=== PATIENT | female | born 1955 | race African-American/Black ===

== ENCOUNTER 2016-12-05 10:14 | Emergency (ER) | payer MEDICAID ==
[~2016-12-05] VITALS: Ht 177.8 cm; Wt 70.0 kg
[~2016-12-05 10:14] MED LIST: THYROID MEDICATION
[2016-12-05] MEDS ORDERED: KETOROLAC 30MG/ML VIAL IV ONE (11:15)
[2016-12-05] MEDS ORDERED: ONDANSETRON HCL 4MG/2ML VIAL IV PRN (11:15)
[2016-12-05] MEDS: MORPHINE SULFATE 2 MG/ML CPJ (NOT FOR IM USE) IV ONE ×2 (11:44→13:35)
[2016-12-05] MEDS ORDERED: HYDROCODONE/ACETAMINOPHEN 5/325MG TABLET PO ONE (17:15)
[2016-12-05 17:44] VITALS: BP 132/72
== END 2016-12-05 18:02 | disposition home or self-care (01) ==
LOC: ER 10:56
DX: R51 Headache (principal); R56.9 Unspecified convulsions; E05.90 Thyrotoxicosis, unspecified without thyrotoxic crisis or storm; Z79.899 Other long term (current) drug therapy; Z88.2 Allergy status to sulfonamides
CPT/HCPCS: 96374; 96375; 99284; J1885; J2270; J2405; Z7610

== ENCOUNTER 2017-02-03 10:00 | Emergency (ER) | payer MEDICAID ==
[~2017-02-03] VITALS: Ht 177.8 cm; Wt 61.0 kg
[2017-02-03] MEDS ORDERED: KETOROLAC 60MG/2ML VIAL IM ONE (11:15)
[2017-02-03] MEDS ORDERED: DEXAMETHASONE 10MG/ML 1ML VIAL IM ONE (11:15)
[2017-02-03 15:35] VITALS: BP 120/19
== END 2017-02-03 16:02 | disposition home or self-care (01) ==
LOC: ER 10:52
DX: R51 Headache (principal); G40.909 Epilepsy, unspecified, not intractable, without status epilepticus; F12.10 Cannabis abuse, uncomplicated; Z85.9 Personal history of malignant neoplasm, unspecified; Z88.2 Allergy status to sulfonamides; Z86.011 Personal history of benign neoplasm of the brain; Z86.73 Personal history of transient ischemic attack (TIA), and cerebral infarction without residual deficits; Z98.890 Other specified postprocedural states
CPT/HCPCS: 36415; 85651; 96372; 99284; J1100; J1885; Z7610

== ENCOUNTER 2017-03-06 10:10 | Emergency (ER) | payer MEDICAID ==
[~2017-03-06] VITALS: Ht 177.8 cm; Wt 65.0 kg
[2017-03-06] MEDS ORDERED: SODIUM CHLORIDE 0.9% 1,000 ML IV ONE (10:43)
[2017-03-06] MEDS ORDERED: DEXAMETHASONE 10MG/ML 1ML VIAL IV ONE (10:45)
[2017-03-06] MEDS ORDERED: KETOROLAC 15MG/ML VIAL IV ONE (10:45)
[2017-03-06 11:04] LABS: BASOPHILS % 0.8 % (0.0-2.0); EOSINOPHILS % 0.4 % (0.0-5.0); HEMATOCRIT. 39.7 % (36.0-48.0); HEMOGLOBIN. 13.1 g/dL (12.0-16.0); LYMPHOCYTES % 39.5 % (20.0-50.0); MEAN CORPUSCULAR HEMOGLOBIN 28.7 pg (28.0-32.0); MEAN CORPUSCULAR VOLUME 86.7 fL (81.0-99.0); MONOCYTES % 6.5 % (2.0-8.0); NEUTROPHILS % 52.8 % (40.0-76.0); PLATELET 241 x1000/uL (130-400); RED BLOOD CELL COUNT 4.57 mill/uL (4.2-5.4); RED CELL DISTRIBUTION WIDTH 14.5 % (11.6-14.6)
[2017-03-06 11:10] LABS: CHLORIDE 110 mEq/L (98-107)
[2017-03-06 11:19] LABS: CARBON DIOXIDE 23 mEq/L (21-32)
[2017-03-06] MEDS ORDERED: POTASSIUM CHLORIDE 20MEQ TABLET SR PO NR (12:15)
[2017-03-06 14:28] VITALS: BP 111/62
== END 2017-03-06 15:00 | disposition home or self-care (01) ==
LOC: ER 10:46
DX: R51 Headache (principal); E87.6 Hypokalemia; R53.1 Weakness; R47.01 Aphasia; E05.90 Thyrotoxicosis, unspecified without thyrotoxic crisis or storm; F12.10 Cannabis abuse, uncomplicated; Z88.2 Allergy status to sulfonamides; Z86.73 Personal history of transient ischemic attack (TIA), and cerebral infarction without residual deficits; Z85.3 Personal history of malignant neoplasm of breast; Z90.11 Acquired absence of right breast and nipple; Z98.890 Other specified postprocedural states
CPT/HCPCS: 36415; 80053; 85025; 96361; 96374; 96375; 99285; J1100; J1885; J7030; Z7610

== ENCOUNTER 2017-05-23 19:14 | Emergency (ER) | payer MEDICAID ==
[~2017-05-23] VITALS: Ht 177.8 cm; Wt 66.0 kg
[2017-05-23 20:20] VITALS: BP 132/81
== END 2017-05-24 02:00 | disposition left against medical advice (07) ==
LOC: ER 05-24 01:29
DX: R53.1 Weakness (principal); Z53.21 Procedure and treatment not carried out due to patient leaving prior to being seen by health care provider

== ENCOUNTER 2018-07-18 19:50 | Inpatient (IN) | payer MEDICAID ==
[~2018-07-18] VITALS: Ht 170.2 cm; Wt 54.0 kg
[2018-07-18] MEDS ORDERED: IBUPROFEN 400MG TABLET PO ONE (20:45)
[2018-07-18] MEDS ORDERED: SODIUM CHLORIDE 0.9% 1,000 ML IV ONE (20:45)
[2018-07-18 22:06] LABS: BASOPHILS % 0.2 % (0.0-2.0); EOSINOPHILS % 0.1 % (0.0-5.0); HEMATOCRIT. 42.7 % (36.0-48.0); HEMOGLOBIN. 13.9 g/dL (12.0-16.0); LYMPHOCYTES % 24.7 % (20.0-50.0); MEAN CORPUSCULAR HEMOGLOBIN 29.3 pg (28.0-32.0); MEAN CORPUSCULAR VOLUME 90.2 fL (81.0-99.0); MEAN PLATELET VOLUME 8.3 fl (7.4-10.4); MONOCYTES % 6.1 % (2.0-8.0); NEUTROPHILS % 68.9 % (40.0-76.0); PLATELET 333 x1000/uL (130-400); RED BLOOD CELL COUNT 4.74 mill/uL (4.2-5.4); RED CELL DISTRIBUTION WIDTH 14.6 % (11.6-14.6)
[2018-07-18] MEDS ORDERED: CEFTRIAXONE 1 G PREMIX 50 ML IV ONE (22:45)
[2018-07-18 23:08] LABS: CLARITY URINE CLEAR (CLEAR); COLOR URINE YELLOW (YELLOW); KETONES URINE NEGATIVE (NEGATIVE); LEUKOCYTE ESTERASE URINE NEGATIVE (NEGATIVE); NITRITE URINE NEGATIVE (NEGATIVE); OCCULT BLOOD URINE NEGATIVE (NEGATIVE); PH URINE 5.5 (4.5-8.0); PROTEIN URINE NEGATIVE (NEGATIVE); SPECIFIC GRAVITY URINE 1.007 (1.005-1.030); UROBILINOGEN URINE 0.2 E.U./dL (0.2-1.0)
[2018-07-19 00:06] LABS: CHLORIDE 110 mEq/L (98-107)
[2018-07-19] MEDS ORDERED: SODIUM CHLORIDE 0.9% 1,000 ML IV SCH (02:53)
[2018-07-19 04:15] VITALS: BP 91/54
[2018-07-19 04:30] VITALS: BP 91/54
[2018-07-19] MEDS ORDERED: MAGNESIUM/ALUMINUM HYDROXIDE/SIMETHICONE 30ML UDC PO PRN (06:15)
[2018-07-19] MEDS ORDERED: IPRATROPIUM/ALBUTEROL 0.5-3(2.5)MG/3ML NEB INH PRN (06:15)
[2018-07-19] MEDS ORDERED: DOCUSATE SODIUM 100MG CAPSULE PO PRN (06:15)
[2018-07-19] MEDS ORDERED: GUAIFENESIN 200MG/10ML SUGAR FREE UDC PO PRN (06:15)
[2018-07-19] MEDS ORDERED: CLONIDINE 0.1MG TABLET PO PRN (06:15)
[2018-07-19] MEDS ORDERED: CEFTRIAXONE 1 G PREMIX 50 ML IV SCH (06:15)
[2018-07-19] MEDS ORDERED: ACETAMINOPHEN 325MG TABLET PO PRN (06:15)
[2018-07-19] MEDS: SODIUM CHLORIDE 0.9% 1,000 ML IV SCH (07:07)
[2018-07-19 08:00] VITALS: BP 90/53
[2018-07-19] MEDS: ASPIRIN 81MG EC TABLET PO SCH (08:52)
[2018-07-19] MEDS ORDERED: CLOP75TA16 PO (11:56)
[2018-07-19] MEDS ORDERED: IBUP-2030 PO (11:56)
[2018-07-19] MEDS ORDERED: KEPP500 PO (11:56)
[2018-07-19] MEDS ORDERED: LEVO100T9 PO (11:56)
[2018-07-19 12:00] VITALS: BP 110/67
[2018-07-19] MEDS: HYDROCODONE/ACETAMINOPHEN 5/325MG TABLET PO PRN (12:09)
[2018-07-19] MEDS: LEVOTHYROXINE SODIUM 100MCG TABLET PO SCH ×2 (12:31→13:34)
[2018-07-19] MEDS: LEVETIRACETAM 250MG TABLET PO SCH ×2 (12:31→13:34)
[2018-07-19] MEDS: CLOPIDOGREL 75MG TABLET PO SCH ×2 (12:32→13:34)
[2018-07-19] MEDS: ONDANSETRON HCL 4MG/2ML INJ IV PRN (13:33)
[2018-07-19 16:00] VITALS: BP 120/54
[2018-07-19 20:00] VITALS: BP 115/72
[2018-07-19] MEDS: LEVETIRACETAM 500MG TABLET PO SCH (20:40)
[2018-07-19 21:38] LABS: FOLIC ACID (FOLATE) SERUM >20 ng/mL ng/mL (>5.38); VITAMIN B12 SERUM >2000 pg/mL pg/mL (211-911)
[2018-07-19] MEDS: CEFTRIAXONE 1 G PREMIX 50 ML IV SCH (23:51)
[2018-07-19 23:58] LABS: *AMPHETAMINES SCREEN URINE NEGATIVE (NEGATIVE); *BARBITURATES SCREEN URINE NEGATIVE (NEGATIVE); *COCAINE SCREEN URINE NEGATIVE (NEGATIVE)
[2018-07-20] VITALS: BP 126/73
[2018-07-20 00:01] LABS: *BENZODIAZEPINES SCREEN URINE NEGATIVE (NEGATIVE); CANNABINOID URINE SCREEN PRESUMTIVE POSITIVE (NEGATIVE); METHADONE URINE SCREEN NEGATIVE (NEGATIVE); OPIATES URINE SCREEN NEGATIVE (NEGATIVE); PHENCYCLIDINE URINE SCREEN NEGATIVE (NEGATIVE)
[2018-07-20 04:00] VITALS: BP 118/69
[2018-07-20] MEDS: SODIUM CHLORIDE 0.9% 1,000 ML IV SCH (06:41)
[2018-07-20] MEDS: KETOROLAC 15MG/ML VIAL IV PRN (06:44)
[2018-07-20] MEDS ORDERED: LEVOTHYROXINE SODIUM 100MCG TABLET PO SCH (06:45)
[2018-07-20 08:00] VITALS: BP 122/63
[2018-07-20 08:00] LABS: BASOPHILS % 0.4 % (0.0-2.0); EOSINOPHILS % 0.5 % (0.0-5.0); HEMOGLOBIN. 12.9 g/dL (12.0-16.0); LYMPHOCYTES % 32.6 % (20.0-50.0); MEAN CORPUSCULAR HEMOGLOBIN 29.7 pg (28.0-32.0); MEAN CORPUSCULAR VOLUME 89.6 fL (81.0-99.0); MEAN PLATELET VOLUME 7.8 fl (7.4-10.4); MONOCYTES % 5.6 % (2.0-8.0); NEUTROPHILS % 60.9 % (40.0-76.0); PLATELET 258 x1000/uL (130-400); RED BLOOD CELL COUNT 4.35 mill/uL (4.2-5.4)
[2018-07-20 08:26] LABS: CHLORIDE 102 mEq/L (98-107)
[2018-07-20] MEDS ORDERED: FOLI20CA PO (08:33)
[2018-07-20] MEDS ORDERED: PYRI50TA9 PO (08:34)
[2018-07-20] MEDS ORDERED: CYAN50008 PO (08:34)
[2018-07-20 08:41] LABS: HDL CHOLESTEROL 60 mg/dL (40-59); LDL CHOLESTEROL 82 mg/dL (5-100); T4 FREE 1.44 ng/dL (0.76-1.46)
[2018-07-20] MEDS: CLOPIDOGREL 75MG TABLET PO SCH (08:53)
[2018-07-20] MEDS: LEVETIRACETAM 500MG TABLET PO SCH ×2 (08:53→21:17)
[2018-07-20] MEDS: ASPIRIN 81MG EC TABLET PO SCH (08:53)
[2018-07-20] MEDS ORDERED: CLOPIDOGREL 75MG TABLET PO SCH (09:00)
[2018-07-20 12:00] VITALS: BP 126/76
[2018-07-20] MEDS: IBUPROFEN 800MG TABLET PO PRN (13:30)
[2018-07-20 16:00] VITALS: BP 126/76
[2018-07-20 20:00] VITALS: BP 110/64
[2018-07-20] MEDS: CEFTRIAXONE 1 G PREMIX 50 ML IV SCH (21:17)
[2018-07-21] VITALS (7 sets, daily range): BP systolic 100–124; BP diastolic 54–72
[2018-07-21] MEDS: LEVOTHYROXINE SODIUM 75MCG TABLET PO SCH (05:28)
[2018-07-21 07:04] LABS: BASOPHILS % 0.4 % (0.0-2.0); EOSINOPHILS % 1.3 % (0.0-5.0); HEMATOCRIT. 39.6 % (36.0-48.0); HEMOGLOBIN. 13.1 g/dL (12.0-16.0); LYMPHOCYTES % 39.8 % (20.0-50.0); MEAN CORPUSCULAR HEMOGLOBIN 29.2 pg (28.0-32.0); MEAN CORPUSCULAR VOLUME 88.4 fL (81.0-99.0); MONOCYTES % 5.8 % (2.0-8.0); NEUTROPHILS % 52.7 % (40.0-76.0); PLATELET 261 x1000/uL (130-400); RED BLOOD CELL COUNT 4.47 mill/uL (4.2-5.4); RED CELL DISTRIBUTION WIDTH 13.7 % (11.6-14.6)
[2018-07-21 07:48] LABS: CHLORIDE 93 mEq/L (98-107)
[2018-07-21] MEDS: CLOPIDOGREL 75MG TABLET PO SCH (09:25)
[2018-07-21] MEDS: ASPIRIN 81MG EC TABLET PO SCH (09:25)
[2018-07-21] MEDS: LEVETIRACETAM 500MG TABLET PO SCH ×2 (09:25→20:26)
[2018-07-21] MEDS ORDERED: GADOBENATE DIMEGLUMINE 529 MG/ML 10ML IV ONE (09:57)
[2018-07-21] MEDS: HYDROCODONE/ACETAMINOPHEN 5/325MG TABLET PO PRN (10:40)
[2018-07-21] MEDS: SODIUM CHLORIDE 0.9% 1,000 ML IV SCH (11:29)
[2018-07-21] MEDS: CEFTRIAXONE 1 G PREMIX 50 ML IV SCH (23:39)
[2018-07-22] VITALS: BP 106/69
[2018-07-22 04:00] VITALS: BP 104/68
[2018-07-22] MEDS: LEVOTHYROXINE SODIUM 75MCG TABLET PO SCH (05:48)
[2018-07-22] MEDS: SODIUM CHLORIDE 0.9% 1,000 ML IV SCH (05:50)
[2018-07-22 08:00] VITALS: BP_SYST 111; BP_SYST 119; BP_SYST 122; BP_DIAS 78; BP_DIAS 79; BP_DIAS 83
[2018-07-22] MEDS: IBUPROFEN 800MG TABLET PO PRN (09:33)
[2018-07-22] MEDS: CLOPIDOGREL 75MG TABLET PO SCH (09:33)
[2018-07-22] MEDS: ASPIRIN 81MG EC TABLET PO SCH (09:33)
[2018-07-22] MEDS: LEVETIRACETAM 500MG TABLET PO SCH ×2 (09:33→21:44)
[2018-07-22 09:50] LABS: BASOPHILS % 0.3 % (0.0-2.0); EOSINOPHILS % 1.1 % (0.0-5.0); HEMATOCRIT. 42.7 % (36.0-48.0); HEMOGLOBIN. 14.4 g/dL (12.0-16.0); LYMPHOCYTES % 38.2 % (20.0-50.0); MEAN CORPUSCULAR HEMOGLOBIN 29.8 pg (28.0-32.0); MEAN CORPUSCULAR VOLUME 88.4 fL (81.0-99.0); MEAN PLATELET VOLUME 7.8 fl (7.4-10.4); MONOCYTES % 5.6 % (2.0-8.0); NEUTROPHILS % 54.8 % (40.0-76.0); PLATELET 244 x1000/uL (130-400); RED BLOOD CELL COUNT 4.83 mill/uL (4.2-5.4); RED CELL DISTRIBUTION WIDTH 13.9 % (11.6-14.6)
[2018-07-22 10:03] LABS: CHLORIDE 95 mEq/L (98-107)
[2018-07-22 10:06] LABS: PHOSPHORUS 2.2 mg/dL (2.5-4.9)
[2018-07-22 12:00] VITALS: BP 132/82
[2018-07-22] MEDS ORDERED: SODIUM PHOS,M-BASIC-D-BASIC 20 MM in DEXT 5% WATER 243.3333 ML IV SCH (13:00)
[2018-07-22 16:00] VITALS: BP 113/75
[2018-07-22 20:00] VITALS: BP_SYST 102; BP_SYST 112; BP_SYST 114; BP_DIAS 61; BP_DIAS 75
[2018-07-23] VITALS: BP 127/71
[2018-07-23] MEDS: CEFTRIAXONE 1 G PREMIX 50 ML IV SCH ×2 (01:22→22:15)
[2018-07-23 04:00] VITALS: BP 117/71
[2018-07-23] MEDS: LEVOTHYROXINE SODIUM 75MCG TABLET PO SCH (05:18)
[2018-07-23] MEDS: HYDROCODONE/ACETAMINOPHEN 5/325MG TABLET PO PRN (05:20)
[2018-07-23 06:07] LABS: BASOPHILS % 0.5 % (0.0-2.0); EOSINOPHILS % 1.2 % (0.0-5.0); HEMATOCRIT. 39.8 % (36.0-48.0); HEMOGLOBIN. 13.6 g/dL (12.0-16.0); LYMPHOCYTES % 33.8 % (20.0-50.0); MEAN CORPUSCULAR HEMOGLOBIN 29.9 pg (28.0-32.0); MEAN CORPUSCULAR VOLUME 87.7 fL (81.0-99.0); MEAN PLATELET VOLUME 7.9 fl (7.4-10.4); MONOCYTES % 7.5 % (2.0-8.0); PLATELET 240 x1000/uL (130-400); RED BLOOD CELL COUNT 4.55 mill/uL (4.2-5.4); RED CELL DISTRIBUTION WIDTH 13.5 % (11.6-14.6)
[2018-07-23 08:00] VITALS: BP 108/75
[2018-07-23 08:14] LABS: CHLORIDE 96 mEq/L (98-107)
[2018-07-23 08:20] LABS: PHOSPHORUS 2.6 mg/dL (2.5-4.9)
[2018-07-23] MEDS: ASPIRIN 81MG EC TABLET PO SCH (09:32)
[2018-07-23] MEDS: CLOPIDOGREL 75MG TABLET PO SCH (09:32)
[2018-07-23] MEDS: LEVETIRACETAM 500MG TABLET PO SCH ×2 (09:32→20:21)
[2018-07-23] MEDS: ONDANSETRON HCL 4MG/2ML INJ IV PRN (11:15)
[2018-07-23] MEDS: KETOROLAC 15MG/ML VIAL IV PRN (11:16)
[2018-07-23 12:00] VITALS: BP 111/60
[2018-07-23 16:00] VITALS: BP_SYST 107; BP_SYST 97; BP_DIAS 66; BP_DIAS 72; BP_DIAS 76
[2018-07-23 20:00] VITALS: BP_SYST 110; BP_SYST 114; BP_SYST 99; BP_DIAS 56; BP_DIAS 65; BP_DIAS 82
[2018-07-23] MEDS: IBUPROFEN 800MG TABLET PO PRN (20:37)
[2018-07-24] VITALS: BP 115/69
[2018-07-24 04:00] VITALS: BP 115/75
[2018-07-24] MEDS: LEVOTHYROXINE SODIUM 75MCG TABLET PO SCH (06:11)
[2018-07-24 08:10] VITALS: BP_SYST 106; BP_SYST 98; BP_DIAS 59; BP_DIAS 74
[2018-07-24 08:38] LABS: BASOPHILS % 0.7 % (0.0-2.0); EOSINOPHILS % 1.3 % (0.0-5.0); HEMOGLOBIN. 13.5 g/dL (12.0-16.0); LYMPHOCYTES % 38.2 % (20.0-50.0); MEAN CORPUSCULAR HEMOGLOBIN 29.1 pg (28.0-32.0); MEAN CORPUSCULAR VOLUME 88.3 fL (81.0-99.0); MONOCYTES % 9.6 % (2.0-8.0); NEUTROPHILS % 50.2 % (40.0-76.0); PLATELET 244 x1000/uL (130-400); RED BLOOD CELL COUNT 4.65 mill/uL (4.2-5.4); RED CELL DISTRIBUTION WIDTH 13.9 % (11.6-14.6)
[2018-07-24] MEDS: LEVETIRACETAM 500MG TABLET PO SCH ×2 (09:01→20:53)
[2018-07-24] MEDS: CLOPIDOGREL 75MG TABLET PO SCH (09:01)
[2018-07-24] MEDS: ASPIRIN 81MG EC TABLET PO SCH (09:01)
[2018-07-24 09:13] LABS: PHOSPHORUS 3.2 mg/dL (2.5-4.9)
[2018-07-24 09:15] LABS: CHLORIDE 96 mEq/L (98-107)
[2018-07-24 12:00] VITALS: BP 113/68
[2018-07-24] MEDS: IBUPROFEN 800MG TABLET PO PRN (14:25)
[2018-07-24 16:00] VITALS: BP 97/70
[2018-07-24 20:00] VITALS: BP_SYST 104; BP_SYST 105; BP_SYST 118; BP_DIAS 67; BP_DIAS 69; BP_DIAS 79
[2018-07-24] MEDS: CEFTRIAXONE 1 G PREMIX 50 ML IV SCH (22:57)
[2018-07-25] VITALS: BP 106/62
[2018-07-25 04:00] VITALS: BP 103/73
[2018-07-25 06:45] LABS: BASOPHILS % 0.7 % (0.0-2.0); EOSINOPHILS % 1.3 % (0.0-5.0); HEMATOCRIT. 41.5 % (36.0-48.0); HEMOGLOBIN. 13.9 g/dL (12.0-16.0); LYMPHOCYTES % 43.6 % (20.0-50.0); MEAN CORPUSCULAR HEMOGLOBIN 29.4 pg (28.0-32.0); MEAN CORPUSCULAR VOLUME 87.8 fL (81.0-99.0); MEAN PLATELET VOLUME 8.1 fl (7.4-10.4); MONOCYTES % 9.7 % (2.0-8.0); NEUTROPHILS % 44.7 % (40.0-76.0); PLATELET 262 x1000/uL (130-400); RED BLOOD CELL COUNT 4.73 mill/uL (4.2-5.4); RED CELL DISTRIBUTION WIDTH 13.9 % (11.6-14.6)
[2018-07-25 06:55] LABS: CHLORIDE 94 mEq/L (98-107)
[2018-07-25 07:04] LABS: PHOSPHORUS 3.1 mg/dL (2.5-4.9)
[2018-07-25] MEDS ORDERED: COSYNTROPIN 0.25MG/ML VIAL IV SCH (08:00)
[2018-07-25 08:22] VITALS: BP 112/80
[2018-07-25] MEDS: CLOPIDOGREL 75MG TABLET PO SCH (09:17)
[2018-07-25] MEDS: ASPIRIN 81MG EC TABLET PO SCH (09:17)
[2018-07-25] MEDS: LEVETIRACETAM 500MG TABLET PO SCH (09:17)
[2018-07-25 12:00] VITALS: BP_SYST 101; BP_SYST 103; BP_SYST 105; BP_DIAS 55; BP_DIAS 63; BP_DIAS 74
[2018-07-25 16:00] VITALS: BP 100/71
[2018-07-25] MEDS ORDERED: ASPI-1158 PO (17:00)
[2018-07-25] MEDS ORDERED: PRED5TAB PO ×2 (17:00)
[2018-07-25] MEDS ORDERED: PREDNISONE 5MG TABLET PO SCH (17:00)
[2018-07-25] MEDS ORDERED: LEVO50TA8 PO (17:00)
[2018-07-25 18:50] VITALS: BP 100/71
[2018-07-26] MEDS ORDERED: LEVOTHYROXINE SODIUM 50MCG TABLET PO SCH (06:45)
[2018-07-26] MEDS ORDERED: PREDNISONE 5MG TABLET PO SCH (08:00)
[2018-07-26 08:16] LABS: ESTRADIOL < 6.0 pg/mL (.); FOLICLE STIMULATING HORMONE 1.7 mIU/mL (.); LUTEINIZING HORMONE <0.2 mIU/mL (.); PROLACTIN 52.4 ng/mL (4.8-23.3)
== END 2018-07-25 21:43 | disposition home or self-care (01) | DRG 720 ==
LOC: ER 19:50 → EDBEDREQ 07-19 02:56 → 5WST 07-19 02:56 → EDBEDREQTM 07-19 02:56 → EDBEDREQDT 07-19 02:56 → ENRESERV 07-19 03:06
PROVIDERS: ADMIT Internal Medicine; ATTEND Internal Medicine
PROC: 4A10X4Z Monitoring of Central Nervous Electrical Activity, External Approach (ICD-10-PCS; principal; 2018-07-22)
DX: A41.9 Sepsis, unspecified organism (principal); G93.40 Encephalopathy, unspecified; E46 Unspecified protein-calorie malnutrition; F32.9 Major depressive disorder, single episode, unspecified; G40.909 Epilepsy, unspecified, not intractable, without status epilepticus; G43.909 Migraine, unspecified, not intractable, without status migrainosus; I10 Essential (primary) hypertension; E27.40 Unspecified adrenocortical insufficiency; E87.1 Hypo-osmolality and hyponatremia; D49.7 Neoplasm of unspecified behavior of endocrine glands and other parts of nervous system; I95.1 Orthostatic hypotension; E03.9 Hypothyroidism, unspecified; E05.90 Thyrotoxicosis, unspecified without thyrotoxic crisis or storm; R00.1 Bradycardia, unspecified; Z68.1 Body mass index [BMI] 19.9 or less, adult; F19.10 Other psychoactive substance abuse, uncomplicated; F12.10 Cannabis abuse, uncomplicated; R47.1 Dysarthria and anarthria; G90.8 Other disorders of autonomic nervous system; W18.39XA Other fall on same level, initial encounter; Y93.89 Activity, other specified; Y92.89 Other specified places as the place of occurrence of the external cause; Y99.8 Other external cause status; I69.351 Hemiplegia and hemiparesis following cerebral infarction affecting right dominant side; Z82.49 Family history of ischemic heart disease and other diseases of the circulatory system; Z88.2 Allergy status to sulfonamides; Z90.10 Acquired absence of unspecified breast and nipple; I69.320 Aphasia following cerebral infarction
CPT/HCPCS: 36415; 70544; 70553; 71045; 80048; 80061; 80305; 82024; 82088; 82533; 82607; 82670; 82746; 83001; 83002; 83036; 83520; 83605; 83735; 83935; 84100; 84146; 84244; 84300; 84439; 84443; 84481; 84484; 86376; 86850; 86900; 92523; 92610; 93005; 93306; 93880; 93970; 96361; 96365; 97116; 97163; 97166; 97530; 97535; 99285; A9577; C1893; J0696; J0834; J1885; J2405; J3490; J7030; J7060; J7512

== ENCOUNTER 2019-05-09 14:51 | Emergency (ER) | payer MEDICAID ==
[~2019-05-09] VITALS: Ht 180.3 cm; Wt 64.0 kg
[~2019-05-09 14:51] MED LIST changes: +ASPI-1158 PO; +CLOP75TA4 PO; +CYAN50008 PO; +FOLI20CA PO; +KEPP500 PO; +LEVO50TA8 PO; +PRED5TAB PO; +PYRI-7 PO; -THYROID MEDICATION
[2019-05-09] MEDS ORDERED: MORPHINE SULFATE 4 MG/ML CPJ (NOT FOR IM USE) IV STA (15:45)
[2019-05-09] MEDS ORDERED: ONDANSETRON HCL 4MG/2ML INJ IV STA (15:45)
[2019-05-09] MEDS ORDERED: SODIUM CHLORIDE 0.9% 1,000 ML IV ONE (15:45)
[2019-05-09 16:37] LABS: CLARITY URINE CLEAR (CLEAR); COLOR URINE YELLOW (YELLOW); KETONES URINE NEGATIVE (NEGATIVE); LEUKOCYTE ESTERASE URINE NEGATIVE (NEGATIVE); NITRITE URINE NEGATIVE (NEGATIVE); OCCULT BLOOD URINE NEGATIVE (NEGATIVE); PROTEIN URINE NEGATIVE (NEGATIVE); SPECIFIC GRAVITY URINE 1.007 (1.005-1.030); UROBILINOGEN URINE 0.2 E.U./dL (0.2-1.0)
[2019-05-09 16:42] LABS: BASOPHILS % 0.5 % (0.0-2.0); HEMATOCRIT. 41.6 % (36.0-48.0); HEMOGLOBIN. 13.7 g/dL (12.0-16.0); LYMPHOCYTES % 14.3 % (20.0-50.0); MEAN CORPUSCULAR HEMOGLOBIN 30.3 pg (28.0-32.0); MEAN CORPUSCULAR VOLUME 91.9 fL (81.0-99.0); MEAN PLATELET VOLUME 7.8 fl (7.4-10.4); MONOCYTES % 2.9 % (2.0-8.0); NEUTROPHILS % 82.3 % (40.0-76.0); PLATELET 231 x1000/uL (130-400); RED BLOOD CELL COUNT 4.53 mill/uL (4.2-5.4); RED CELL DISTRIBUTION WIDTH 13.8 % (11.6-14.6)
[2019-05-09 16:48] LABS: CHLORIDE 108 mEq/L (98-107)
[2019-05-09] MEDS ORDERED: KETOROLAC 30MG/ML VIAL IV ONE (18:00)
[2019-05-09 18:21] VITALS: BP 113/68
== END 2019-05-09 18:31 | disposition home or self-care (01) ==
LOC: ER 14:51
DX: R10.11 Right upper quadrant pain (principal)
CPT/HCPCS: 36415; 71045; 74176; 76705; 80053; 81003; 83690; 85025; 93005; 96374; 99284; J1885; J7030; J2270; J2405

== ENCOUNTER 2019-11-10 10:39 | Inpatient (IN) | payer MEDICAID ==
[~2019-11-10] VITALS: Ht 165.1 cm; Wt 52.2 kg
[2019-11-10] MEDS ORDERED: SODIUM CHLORIDE 0.9% 1,000 ML IV ONE (10:52)
[2019-11-10] MEDS ORDERED: LEVETIRACETAM 500MG PREMIX 100 ML IV ONE (11:00)
[2019-11-10 11:25] LABS: HEMATOCRIT. 39.8 % (36.0-48.0); HEMOGLOBIN. 12.9 g/dL (12.0-16.0); MEAN CORPUSCULAR HEMOGLOBIN 31.8 pg (28.0-32.0); MEAN CORPUSCULAR VOLUME 98.1 fL (81.0-99.0); MEAN PLATELET VOLUME 8.6 fl (7.4-10.4); PLATELET 222 x1000/uL (130-400); RED BLOOD CELL COUNT 4.06 mill/uL (4.2-5.4); RED CELL DISTRIBUTION WIDTH 16.1 % (11.6-14.6)
[2019-11-10 11:31] LABS: CHLORIDE 106 mEq/L (98-107)
[2019-11-10 11:38] LABS: ETHANOL BLOOD < 10 mg/dL
[2019-11-10] MEDS ORDERED: LORAZEPAM 2MG/ML CPJ IV ONE (13:30)
[2019-11-10 13:44] LABS: PLATELET ESTIMATE NORMAL
[2019-11-10 19:11] LABS: CLARITY URINE CLEAR (CLEAR); COLOR URINE YELLOW (YELLOW); KETONES URINE NEGATIVE (NEGATIVE); LEUKOCYTE ESTERASE URINE NEGATIVE (NEGATIVE); NITRITE URINE NEGATIVE (NEGATIVE); OCCULT BLOOD URINE NEGATIVE (NEGATIVE); PROTEIN URINE NEGATIVE (NEGATIVE); SPECIFIC GRAVITY URINE 1.012 (1.005-1.030); UROBILINOGEN URINE 0.2 E.U./dL (0.2-1.0)
[2019-11-10 19:22] LABS: *BENZODIAZEPINES SCREEN URINE PRESUMTIVE POSITIVE (NEGATIVE); METHADONE URINE SCREEN NEGATIVE (NEGATIVE); OPIATES URINE SCREEN NEGATIVE (NEGATIVE); PHENCYCLIDINE URINE SCREEN NEGATIVE (NEGATIVE)
[2019-11-10 19:23] LABS: *AMPHETAMINES SCREEN URINE NEGATIVE (NEGATIVE); *BARBITURATES SCREEN URINE NEGATIVE (NEGATIVE); *COCAINE SCREEN URINE NEGATIVE (NEGATIVE); CANNABINOID URINE SCREEN PRESUMTIVE POSITIVE (NEGATIVE)
[2019-11-11] VITALS (7 sets, daily range): BP systolic 97–117; BP diastolic 44–75
[2019-11-11] MEDS ORDERED: LEVOTHYROXINE SODIUM 50MCG TABLET PO SCH (07:20)
[2019-11-11] MEDS: FOLIC ACID 1MG TABLET PO SCH (08:27)
[2019-11-11] MEDS: CLOPIDOGREL 75MG TABLET PO SCH (08:28)
[2019-11-11] MEDS: PYRIDOXINE HCL 50MG TABLET PO SCH (08:28)
[2019-11-11] MEDS: ASPIRIN 81MG EC TABLET PO SCH (08:28)
[2019-11-11] MEDS: CYANOCOBALAMIN 1000MCG TABLET PO SCH (08:28)
[2019-11-11] MEDS: PREDNISONE 5MG TABLET PO SCH (08:30)
[2019-11-11] MEDS ORDERED: FOLIC ACID 5 MG PO SCH (09:00)
[2019-11-11] MEDS ORDERED: MEDICATION NOT ON FORMULARY EA (Cyanocobalamin (Vitamin B-12) (Vitamin B12) 1,000 MCG) PO SCH (09:00)
[2019-11-11] MEDS ORDERED: LEVETIRACETAM 500MG/5ML CUP PO SCH (09:00)
[2019-11-11 09:12] LABS: BASOPHILS % 0.4 % (0.0-2.0); EOSINOPHILS % 0.2 % (0.0-5.0); HEMATOCRIT. 43.6 % (36.0-48.0); HEMOGLOBIN. 14.4 g/dL (12.0-16.0); LYMPHOCYTES % 33.3 % (20.0-50.0); MEAN CORPUSCULAR HEMOGLOBIN 31.7 pg (28.0-32.0); MEAN CORPUSCULAR VOLUME 95.8 fL (81.0-99.0); MONOCYTES % 5.5 % (2.0-8.0); NEUTROPHILS % 60.6 % (40.0-76.0); PLATELET 205 x1000/uL (130-400); RED BLOOD CELL COUNT 4.55 mill/uL (4.2-5.4); RED CELL DISTRIBUTION WIDTH 15.5 % (11.6-14.6)
[2019-11-11 09:22] LABS: CHLORIDE 107 mEq/L (98-107)
[2019-11-11 09:29] LABS: LDL CHOLESTEROL 148 mg/dL (5-100)
[2019-11-11 09:32] LABS: HDL CHOLESTEROL 91 mg/dL (40-59)
[2019-11-11 12:31] LABS: FOLIC ACID (FOLATE) SERUM >20 ng/mL ng/mL (>5.38)
[2019-11-11 12:48] LABS: VITAMIN B12 SERUM > 2000.0 pg/mL (211-911)
[2019-11-11] MEDS: ENOXAPARIN 40MG/0.4ML SYR SUBCUT SCH (13:30)
[2019-11-11] MEDS: ACETAMINOPHEN 325MG TABLET PO PRN (13:36)
[2019-11-11] MEDS: LEVETIRACETAM 500MG TABLET PO SCH (16:59)
[2019-11-11] MEDS: ATORVASTATIN CALCIUM 40MG TABLET PO SCH (22:09)
[2019-11-12] VITALS: BP 99/64
[2019-11-12 04:00] VITALS: BP 104/69
[2019-11-12 06:42] LABS: BASOPHILS % 0.4 % (0.0-2.0); EOSINOPHILS % 0.2 % (0.0-5.0); HEMATOCRIT. 44.4 % (36.0-48.0); HEMOGLOBIN. 14.6 g/dL (12.0-16.0); LYMPHOCYTES % 41.9 % (20.0-50.0); MEAN CORPUSCULAR HEMOGLOBIN 31.4 pg (28.0-32.0); MEAN CORPUSCULAR VOLUME 95.4 fL (81.0-99.0); MEAN PLATELET VOLUME 7.9 fl (7.4-10.4); NEUTROPHILS % 52.5 % (40.0-76.0); PLATELET 215 x1000/uL (130-400); RED BLOOD CELL COUNT 4.65 mill/uL (4.2-5.4); RED CELL DISTRIBUTION WIDTH 15.4 % (11.6-14.6)
[2019-11-12 07:33] LABS: CHLORIDE 105 mEq/L (98-107)
[2019-11-12 08:13] VITALS: BP 107/68
[2019-11-12] MEDS: PYRIDOXINE HCL 50MG TABLET PO SCH (08:40)
[2019-11-12] MEDS: LEVETIRACETAM 500MG TABLET PO SCH ×2 (08:40→17:04)
[2019-11-12] MEDS: PREDNISONE 5MG TABLET PO SCH (08:40)
[2019-11-12] MEDS: ASPIRIN 81MG EC TABLET PO SCH (08:40)
[2019-11-12] MEDS: FOLIC ACID 1MG TABLET PO SCH (08:40)
[2019-11-12] MEDS: CYANOCOBALAMIN 1000MCG TABLET PO SCH (08:40)
[2019-11-12] MEDS: CLOPIDOGREL 75MG TABLET PO SCH (08:40)
[2019-11-12] MEDS: ENOXAPARIN 40MG/0.4ML SYR SUBCUT SCH ×2 (08:41→08:55)
[2019-11-12] MEDS ORDERED: HYDROCODONE/ACETAMINOPHEN 5/325MG TABLET PO PRN (11:00)
[2019-11-12 11:51] VITALS: BP 118/69
[2019-11-12] MEDS ORDERED: LIP40 MT (15:39)
[2019-11-12 15:44] VITALS: BP 128/75
[2019-11-12 20:00] VITALS: BP 114/83
[2019-11-12] MEDS: ATORVASTATIN CALCIUM 40MG TABLET PO SCH (22:05)
[2019-11-13] VITALS: BP 113/69
[2019-11-13 08:37] VITALS: BP 105/72
[2019-11-13] MEDS ORDERED: KETOROLAC 10MG TABLET PO PRN (09:15)
[2019-11-13] MEDS: CYANOCOBALAMIN 1000MCG TABLET PO SCH (09:32)
[2019-11-13] MEDS: LEVETIRACETAM 500MG TABLET PO SCH ×2 (09:32→17:39)
[2019-11-13] MEDS: ENOXAPARIN 40MG/0.4ML SYR SUBCUT SCH (09:32)
[2019-11-13] MEDS: CLOPIDOGREL 75MG TABLET PO SCH (09:32)
[2019-11-13] MEDS: PREDNISONE 5MG TABLET PO SCH (09:32)
[2019-11-13] MEDS: ASPIRIN 81MG EC TABLET PO SCH (09:32)
[2019-11-13] MEDS: FOLIC ACID 1MG TABLET PO SCH (09:32)
[2019-11-13] MEDS: PYRIDOXINE HCL 50MG TABLET PO SCH (09:33)
[2019-11-13] MEDS: ACETAMINOPHEN 325MG TABLET PO PRN (09:40)
[2019-11-13] MEDS ORDERED: LEVOTHYROXINE SODIUM 25MCG TABLET PO SCH (11:30)
[2019-11-13] MEDS ORDERED: LEVO25TA7 MT (11:39)
[2019-11-13 11:49] VITALS: BP 87/56
[2019-11-13 15:25] VITALS: BP 110/66
[2019-11-13 15:28] VITALS: BP 110/66
[2019-11-13] MEDS ORDERED: PREDNISONE 1MG TABLET PO SCH (19:00)
[2019-11-13 19:30] VITALS: BP 126/85
== END 2019-11-13 20:00 | disposition home or self-care (01) | DRG 48 ==
LOC: ER 10:39 → 6WST 14:45 → ENRESERV 23:44
PROVIDERS: ADMIT Internal Medicine; ATTEND Internal Medicine
DX: G90.8 Other disorders of autonomic nervous system (principal); I95.9 Hypotension, unspecified; E22.1 Hyperprolactinemia; E27.40 Unspecified adrenocortical insufficiency; I69.351 Hemiplegia and hemiparesis following cerebral infarction affecting right dominant side; G40.909 Epilepsy, unspecified, not intractable, without status epilepticus; E03.9 Hypothyroidism, unspecified; F12.90 Cannabis use, unspecified, uncomplicated; E78.5 Hyperlipidemia, unspecified; I10 Essential (primary) hypertension; I25.2 Old myocardial infarction; I69.320 Aphasia following cerebral infarction; Z91.19 Patient's noncompliance with other medical treatment and regimen; Z88.2 Allergy status to sulfonamides; Z87.891 Personal history of nicotine dependence; Z82.49 Family history of ischemic heart disease and other diseases of the circulatory system; Z83.3 Family history of diabetes mellitus; Z85.3 Personal history of malignant neoplasm of breast; Z79.899 Other long term (current) drug therapy; Z79.82 Long term (current) use of aspirin; Z88.5 Allergy status to narcotic agent
CPT/HCPCS: 36415; 70551; 71045; 73060; 80048; 80053; 80061; 80305; 80320; 81003; 82140; 82542; 82607; 82746; 82962; 83036; 84439; 84443; 84481; 84484; 85025; 92523; 93005; 97116; 97162; 99285; J1650; J1953; J2060; J7030; J7512; G0480

== ENCOUNTER 2022-01-22 14:50 | Emergency (ER) | payer MEDICARE, MEDICAID ==
[~2022-01-22] VITALS: Ht 180.3 cm; Wt 75.0 kg
[~2022-01-22 14:50] MED LIST changes: -ASPI-1158 PO; +ASPI-1406 PO; +CLOP-31 PO; -CLOP75TA4 PO; -CYAN50008 PO; +CYAN50009 PO; +LEVO25TA7 MT; -LEVO50TA8 PO; +LIP40 MT
[2022-01-22] MEDS ORDERED: LIDOCAINE HCL/PF 1% 10 MG/ML 5ML VIAL INFIL ONE (15:45)
[2022-01-22] MEDS ORDERED: TETANUS, DIPHTHERIA, PERTUSSIS VAC/PF 0.5ML (>10YR OLD) IM ONE (15:45)
[2022-01-22] MEDS ORDERED: BACITRACIN ZINC OINT UDPKT TOP ONE (15:45)
[2022-01-22] MEDS ORDERED: LIDOCAINE HCL 1% 10 MG/ML 10ML VIAL INJ NR (16:00)
[2022-01-22 17:22] VITALS: BP 115/65
== END 2022-01-22 17:22 | disposition home or self-care (01) ==
LOC: ER 14:50
DX: S01.111A Laceration without foreign body of right eyelid and periocular area, initial encounter (principal); I69.920 Aphasia following unspecified cerebrovascular disease; R94.31 Abnormal electrocardiogram [ECG] [EKG]; W01.198A Fall on same level from slipping, tripping and stumbling with subsequent striking against other object, initial encounter; Y93.01 Activity, walking, marching and hiking; Y92.018 Other place in single-family (private) house as the place of occurrence of the external cause; G40.909 Epilepsy, unspecified, not intractable, without status epilepticus; Z88.2 Allergy status to sulfonamides; Z88.5 Allergy status to narcotic agent; Z79.899 Other long term (current) drug therapy
CPT/HCPCS: 12011; 90715; 93005; 99284; J3490